=== PATIENT | male | born 1955 | race Two or more races ===

== ENCOUNTER 2024-08-27 10:39 | Inpatient (IN) | payer MEDICARE, OTHER ==
[~2024-08-27] VITALS: Ht 162.6 cm; Wt 73.1 kg
[2024-08-27 09:16] VITALS: BP 120/62
[2024-08-27 09:40] VITALS: BP 120/62
[2024-08-27 20:00] VITALS: BP 116/69; TEMP 97.4; O2SAT 98
[2024-08-27] MEDS ORDERED: REMEDY ESSENTIAL ZINC PASTE 113 GM TOP PRN (21:00)
[2024-08-27] MEDS: ATORVASTATIN 40 MG TABLET PO SCH (21:00)
[2024-08-27] MEDS: LATANOPROST OPHT DROP 2.5 ML BOTTLE EACHEYE SCH (21:00)
[2024-08-27] MEDS: BRIMONIDINE 0.2% OPHT DROP 10 ML BOTTLE EACHEYE SCH (21:00)
[2024-08-27] MEDS: DORZOLAMIDE 2% OPHT DROP 10 ML BOTTLE EACHEYE SCH (21:00)
[2024-08-28] MEDS ORDERED: MELA3TAB41 PO (02:57)
[2024-08-28] MEDS ORDERED: DEXT50VI3 IV (02:57)
[2024-08-28] MEDS ORDERED: SIME80TA15 PO ×2 (02:57)
[2024-08-28] MEDS ORDERED: HYDR-3641 GT (02:57)
[2024-08-28] MEDS ORDERED: BENA40TA67 PO (02:57)
[2024-08-28] MEDS ORDERED: BENZ-13 PO ×2 (02:57→07:59)
[2024-08-28] MEDS ORDERED: METO-295 PO (02:57)
[2024-08-28] MEDS ORDERED: LORA2VIA33 IV (02:57)
[2024-08-28] MEDS ORDERED: GLUC1VIA4 IV (02:57)
[2024-08-28] MEDS ORDERED: MICO142O TP ×2 (02:57)
[2024-08-28] MEDS ORDERED: ZINC56.713 TP ×3 (02:57→07:59)
[2024-08-28] MEDS ORDERED: IPRA0.2S48 NEB (02:57)
[2024-08-28] MEDS ORDERED: DIPH25CA83 PO (02:57)
[2024-08-28] MEDS ORDERED: DICY20TA11 PO ×2 (02:57→07:59)
[2024-08-28] MEDS ORDERED: POLY17PO4 PO (02:57)
[2024-08-28] MEDS ORDERED: AMLO10TA4 PO (02:57)
[2024-08-28] MEDS ORDERED: CALC-494 PO ×2 (02:57→09:13)
[2024-08-28] MEDS ORDERED: DEXT50DI8 IV (02:57)
[2024-08-28] MEDS ORDERED: FOLI0.8T23 PO (02:57)
[2024-08-28] MEDS ORDERED: DEXT15LI44 PO (02:57)
[2024-08-28] MEDS ORDERED: LANS30CA56 PO (03:02)
[2024-08-28 05:24] VITALS: BP 121/67; TEMP 97.6; O2SAT 97
[2024-08-28] MEDS ORDERED: MELA3CAP2 PO (07:59)
[2024-08-28] MEDS ORDERED: ATOR40TA PO (07:59)
[2024-08-28] MEDS ORDERED: MULT-366 PO (07:59)
[2024-08-28] MEDS ORDERED: MICO45CR18 VG (07:59)
[2024-08-28] MEDS ORDERED: BENA20TA78 PO (07:59)
[2024-08-28] MEDS ORDERED: HYDR10SY12 GT (07:59)
[2024-08-28] MEDS ORDERED: IPRA0.2S6 NEB (07:59)
[2024-08-28] MEDS ORDERED: CALC300T4 PO (07:59)
[2024-08-28] MEDS ORDERED: LATA7.5D EACHEYE (07:59)
[2024-08-28] MEDS ORDERED: POLY119P2 PO (07:59)
[2024-08-28] MEDS ORDERED: DORZ10DR EACHEYE (07:59)
[2024-08-28] MEDS ORDERED: LANS30CA54 PO (07:59)
[2024-08-28 08:00] VITALS: BP 119/70; TEMP 97.6; O2SAT 97
[2024-08-28] MEDS ORDERED: BRIMONIDINE 0.2% OPHT DROP 10 ML BOTTLE EACHEYE SCH ×3 (09:00)
[2024-08-28] MEDS ORDERED: DORZOLAMIDE 2% OPHT DROP 10 ML BOTTLE EACHEYE SCH (09:00)
[2024-08-28] MEDS ORDERED: BENA10TA74 PO (09:08)
[2024-08-28] MEDS ORDERED: ACET325T53 PO (09:09)
[2024-08-28] MEDS ORDERED: BRIM10DR6 EACHEYE (09:11)
[2024-08-28] MEDS ORDERED: LATA2.5D15 EACHEYE (09:26)
[2024-08-28] MEDS ORDERED: ACETAMINOPHEN 325 MG TABLET-SA PATIENTS-PAIN ONLY PO PRN (09:45)
[2024-08-28] MEDS ORDERED: MELATONIN 3 MG TABLET PO PRN (09:45)
[2024-08-28] MEDS ORDERED: hydrOXYzine HCL 10 MG TABLET GT PRN (09:45)
[2024-08-28] MEDS ORDERED: LORAZEPAM 2 MG/1 ML VIAL IV PRN (09:45)
[2024-08-28] MEDS ORDERED: ZINC OXIDE OINT 30 GM TUBE TP SCH ×2 (09:45→21:00)
[2024-08-28] MEDS ORDERED: METOCLOPRAMIDE HCL 10 MG TABLET PO PRN (09:45)
[2024-08-28] MEDS ORDERED: BENZONATATE 100 MG CAPSULE PO PRN (09:45)
[2024-08-28] MEDS ORDERED: Medication Not On Formulary EA (Calcium Carbonate 1,000 MG) PO PRN (09:45)
[2024-08-28] MEDS ORDERED: diphenhydrAMINE 25 MG CAP PO PRN (09:45)
[2024-08-28] MEDS: BENAZEPRIL HCL 10 MG TABLET PO SCH (10:12)
[2024-08-28] MEDS ORDERED: CALCIUM CARBONATE 500 MG TAB.CHEW PO PRN (10:30)
[2024-08-28] MEDS: FOLIC ACID/VITAMIN B COMP W-C TABLET PO SCH (10:57)
[2024-08-28] MEDS: AMLODIPINE 10 MG TABLET PO SCH (10:59)
[2024-08-28] MEDS: IPRATROPIUM BROMIDE 0.5 MG/2.5 ML NEBU NEB SCH (12:00)
[2024-08-28] MEDS: REMEDY ESSENTIAL ZINC PASTE 113 GM TP SCH (14:13)
[2024-08-28] MEDS: BRIMONIDINE 0.2% OPHT DROP 10 ML BOTTLE EACHEYE SCH (14:14)
[2024-08-28 15:45] VITALS: O2SAT 98
[2024-08-28 15:55] VITALS: O2SAT 99
[2024-08-28 16:00] VITALS: BP 116/64; TEMP 99.3; O2SAT 97
[2024-08-28] MEDS: ACETAMINOPHEN 325 MG TABLET PO PRN (16:24)
[2024-08-28] MEDS: DORZOLAMIDE 2% OPHT DROP 10 ML BOTTLE EACHEYE SCH (17:26)
[2024-08-28 20:25] VITALS: BP 112/64; TEMP 97.4; O2SAT 95
[2024-08-28] MEDS ORDERED: LATANOPROST OPHT DROP 2.5 ML BOTTLE EACHEYE SCH (21:00)
[2024-08-28] MEDS: ATORVASTATIN 40 MG TABLET PO SCH (21:00)
[2024-08-28] MEDS: LATANOPROST OPHT DROP 2.5 ML BOTTLE EACHEYE SCH (21:27)
[2024-08-29] VITALS (14 sets, daily range): BP systolic 123–130; BP diastolic 64–67; TEMP 97.7–98.1; O2SAT 96–99
[2024-08-29] MEDS: PANTOPRAZOLE SODIUM 40 MG TABLET.DR PO SCH (06:27)
[2024-08-29] MEDS: SIMETHICONE 80 MG TAB.CHEW PO SCH (08:31)
[2024-08-30] VITALS (12 sets, daily range): BP systolic 123–139; BP diastolic 61–77; TEMP 97.2–97.4; O2SAT 96–99
[2024-08-30] MEDS: METFORMIN HCL 500 MG TABLET PO SCH (17:21)
[2024-08-31] VITALS (8 sets, daily range): BP systolic 117–126; BP diastolic 64–69; TEMP 97.5–98; O2SAT 94–99
[2024-08-31 07:03] LABS: BASOPHILS % (AUTO) 0.3 % (0.0-2.0); EOSINOPHILS # (AUTO) 0.3 K/uL (0.0-0.7); EOSINOPHILS % (AUTO) 2.9 % (0.0-7.0); HEMATOCRIT 37.5 % (36.7-47.1); HEMOGLOBIN 12.6 g/dL (12.5-16.3); LYMPHOCYTES # (AUTO) 2.7 K/uL (0.8-4.8); LYMPHOCYTES % (AUTO) 26.1 % (20.5-51.5); MEAN CORPUSCULAR HEMOGLOBIN 30.4 uug (23.8-33.4); MEAN CORPUSCULAR HGB CONC 34 g/dL (32.5-36.3); MEAN CORPUSCULAR VOLUME 90.4 fL (73.0-96.2); MONOCYTES # (AUTO) 0.7 K/uL (0.1-1.30); MONOCYTES % (AUTO) 6.3 % (0.0-11.0); NEUTROPHILS # (AUTO) 6.6 K/uL (1.8-8.9); NEUTROPHILS % (AUTO) 64.4 % (38.5-71.5); PLATELET COUNT (AUTO) 253 K/uL (152-348); RED BLOOD CELL COUNT(AUTO) 4.15 MIL/uL (4.06-5.63); RED CELL DISTRIBUTION WIDTH 15.7 % (12.1-16.2); WHITE BLOOD COUNT (AUTO) 10.3 K/uL (3.6-10.2)
[2024-08-31 07:08] LABS: CALCIUM 9.1 mg/dL (8.5-10.1); CARBON DIOXIDE 28 mmol/L (21-32); CHLORIDE 103 mmol/L (98-107); CREATININE 0.3 mg/dL (0.6-1.3); GLUCOSE 108 mg/dL (74-106); MAGNESIUM 1.7 mg/dL (1.8-2.4); PHOSPHOROUS 3.6 mg/dL (2.5-4.9); POTASSIUM 3.8 mmol/L (3.5-5.1); SODIUM SERUM 138 mmol/L (136-145); UREA NITROGEN, BLOOD 8 mg/dL (7-18)
[2024-08-31 07:53] LABS: DIFFERENTIAL COMMENT 1
[2024-08-31] MEDS: MAGNESIUM OXIDE 400 MG TABLET PO ONE (13:44)
[2024-09-01] VITALS (8 sets, daily range): BP systolic 105–122; BP diastolic 61–64; TEMP 97.1–98.3; O2SAT 96–98
[2024-09-02] VITALS (8 sets, daily range): BP systolic 112–130; BP diastolic 62–73; TEMP 97.5–97.7; O2SAT 96–99
[2024-09-02] MEDS: ATORVASTATIN 40 MG TABLET PO SCH (20:47)
[2024-09-03 05:20] VITALS: BP 136/69; TEMP 98
[2024-09-03] MEDS: GLUCERNA SHAKE 237 ML CAN PO SCH (08:58)
[2024-09-03 18:01] VITALS: O2SAT 98
[2024-09-03 18:16] VITALS: O2SAT 100
[2024-09-03 19:56] VITALS: BP 117/59; TEMP 97.2; O2SAT 96
[2024-09-04 06:12] VITALS: BP 117/63; TEMP 98; O2SAT 96
[2024-09-04 08:21] VITALS: BP 106/56; TEMP 97.6; O2SAT 98
[2024-09-04 16:03] VITALS: BP_SYST 106; BP_SYST 125; BP_DIAS 56; BP_DIAS 68; TEMP 97.5; TEMP 97.6; O2SAT 97; O2SAT 98
[2024-09-04 20:00] VITALS: BP 148/64; TEMP 97.7; O2SAT 97
[2024-09-04] MEDS ORDERED: IPRATROPIUM BROMIDE 0.5 MG/2.5 ML NEBU NEB PRN (20:00)
[2024-09-04] MEDS: MIRALAX 17 GM POWD.PACK PO PRN (20:05)
[2024-09-05 05:00] VITALS: BP 130/70; TEMP 97.7; O2SAT 96
[2024-09-05 08:00] VITALS: BP 129/61; TEMP 97.2; O2SAT 97
[2024-09-05 16:00] VITALS: BP 115/63; TEMP 97.6; O2SAT 97
[2024-09-05 20:00] VITALS: BP 117/62; TEMP 98; O2SAT 95
[2024-09-06 05:25] VITALS: BP 127/66; TEMP 97.8; O2SAT 95
[2024-09-06 07:37] LABS: BASOPHILS % (AUTO) 0.5 % (0.0-2.0); EOSINOPHILS # (AUTO) 0.3 K/uL (0.0-0.7); EOSINOPHILS % (AUTO) 3.7 % (0.0-7.0); HEMATOCRIT 38.1 % (36.7-47.1); HEMOGLOBIN 13.1 g/dL (12.5-16.3); LYMPHOCYTES # (AUTO) 2.6 K/uL (0.8-4.8); LYMPHOCYTES % (AUTO) 33.4 % (20.5-51.5); MEAN CORPUSCULAR HEMOGLOBIN 30.7 uug (23.8-33.4); MEAN CORPUSCULAR HGB CONC 34 g/dL (32.5-36.3); MEAN CORPUSCULAR VOLUME 89.6 fL (73.0-96.2); MONOCYTES # (AUTO) 0.6 K/uL (0.1-1.30); MONOCYTES % (AUTO) 7.2 % (0.0-11.0); NEUTROPHILS # (AUTO) 4.3 K/uL (1.8-8.9); NEUTROPHILS % (AUTO) 55.2 % (38.5-71.5); PLATELET COUNT (AUTO) 295 K/uL (152-348); RED BLOOD CELL COUNT(AUTO) 4.25 MIL/uL (4.06-5.63); RED CELL DISTRIBUTION WIDTH 15.1 % (12.1-16.2); WHITE BLOOD COUNT (AUTO) 7.8 K/uL (3.6-10.2)
[2024-09-06 07:55] LABS: CALCIUM 8.5 mg/dL (8.5-10.1); CARBON DIOXIDE 27 mmol/L (21-32); CHLORIDE 106 mmol/L (98-107); CREATININE 0.3 mg/dL (0.6-1.3); GLUCOSE 96 mg/dL (74-106); MAGNESIUM 1.4 mg/dL (1.8-2.4); PHOSPHOROUS 3.7 mg/dL (2.5-4.9); POTASSIUM 3.6 mmol/L (3.5-5.1); SODIUM SERUM 140 mmol/L (136-145); UREA NITROGEN, BLOOD 6 mg/dL (7-18)
[2024-09-06 07:56] LABS: DIFFERENTIAL COMMENT 1
[2024-09-06] MEDS: MAGNESIUM OXIDE 400 MG TABLET PO ONE (10:00)
[2024-09-06 15:00] VITALS: BP 131/73; TEMP 97.9; O2SAT 98
[2024-09-06 20:00] VITALS: BP 104/55; TEMP 97.5; O2SAT 95
[2024-09-07 15:00] VITALS: BP 118/69; TEMP 97.5; O2SAT 96
[2024-09-07] MEDS: MAGNESIUM CHLORIDE 64 MG TABLET.SA PO SCH (18:49)
[2024-09-07 20:00] VITALS: BP 105/56; TEMP 97.7; O2SAT 98
[2024-09-08 05:00] VITALS: BP 126/67; TEMP 97.7; O2SAT 99
[2024-09-08 15:13] VITALS: BP 116/65; TEMP 98.2; O2SAT 96
[2024-09-08 20:00] VITALS: BP 126/68; TEMP 97.6; O2SAT 96
[2024-09-09 10:27] VITALS: TEMP 97.8
[2024-09-09 12:21] LABS: CALCIUM 9.1 mg/dL (8.5-10.1); CARBON DIOXIDE 26 mmol/L (21-32); CHLORIDE 106 mmol/L (98-107); CREATININE 0.4 mg/dL (0.6-1.3); GLUCOSE 142 mg/dL (74-106); MAGNESIUM 1.6 mg/dL (1.8-2.4); POTASSIUM 3.6 mmol/L (3.5-5.1); SODIUM SERUM 142 mmol/L (136-145); UREA NITROGEN, BLOOD 12 mg/dL (7-18)
[2024-09-09 17:31] VITALS: TEMP 98.1
[2024-09-09 20:07] VITALS: BP 126/61; TEMP 97.8; O2SAT 95
[2024-09-10 06:46] VITALS: BP 119/59; TEMP 98; O2SAT 96
[2024-09-10 08:00] VITALS: BP 124/68; TEMP 97.9; O2SAT 98
[2024-09-10] MEDS: MAGNESIUM CHLORIDE 64 MG TABLET.SA PO SCH (09:04)
[2024-09-10 16:18] VITALS: BP 112/67; TEMP 97.6; O2SAT 97
[2024-09-10 20:00] VITALS: BP 115/61; TEMP 97.6; O2SAT 94
[2024-09-11 06:00] VITALS: BP 120/74; TEMP 97.7; O2SAT 97
[2024-09-11 08:00] VITALS: BP 132/65; TEMP 97.6; O2SAT 97
[2024-09-11 17:00] VITALS: BP 118/52; TEMP 98.2; O2SAT 96
[2024-09-11 20:01] VITALS: BP 109/59; TEMP 97.9; O2SAT 96
[2024-09-12 05:40] VITALS: BP 113/64; TEMP 97.8; O2SAT 98
[2024-09-12 07:40] VITALS: BP 124/73; TEMP 98; O2SAT 98
[2024-09-12 15:58] VITALS: BP 122/71; TEMP 98; O2SAT 98
[2024-09-12 20:00] VITALS: BP 111/56; TEMP 98.1; O2SAT 97
[2024-09-13 06:00] VITALS: BP 116/68; TEMP 98.1; O2SAT 99
[2024-09-13 08:00] VITALS: BP 129/71; TEMP 97.5; O2SAT 97
[2024-09-13 16:36] VITALS: BP 111/67; TEMP 98.5; O2SAT 97
[2024-09-13 21:00] VITALS: BP 107/60; TEMP 98.3; O2SAT 96
[2024-09-14 06:45] VITALS: BP 131/71; TEMP 97.9; O2SAT 97
[2024-09-14 07:40] VITALS: BP 124/73; TEMP 97.6; O2SAT 98
[2024-09-14 08:53] LABS: BASOPHILS % (AUTO) 0.6 % (0.0-2.0); EOSINOPHILS # (AUTO) 0.3 K/uL (0.0-0.7); EOSINOPHILS % (AUTO) 3.7 % (0.0-7.0); HEMATOCRIT 41.3 % (36.7-47.1); LYMPHOCYTES # (AUTO) 2.6 K/uL (0.8-4.8); LYMPHOCYTES % (AUTO) 34.4 % (20.5-51.5); MEAN CORPUSCULAR HGB CONC 34 g/dL (32.5-36.3); MONOCYTES # (AUTO) 0.4 K/uL (0.1-1.30); MONOCYTES % (AUTO) 4.7 % (0.0-11.0); NEUTROPHILS # (AUTO) 4.2 K/uL (1.8-8.9); NEUTROPHILS % (AUTO) 56.6 % (38.5-71.5); PLATELET COUNT (AUTO) 273 K/uL (152-348); RED BLOOD CELL COUNT(AUTO) 4.53 MIL/uL (4.06-5.63); RED CELL DISTRIBUTION WIDTH 15.7 % (12.1-16.2); WHITE BLOOD COUNT (AUTO) 7.5 K/uL (3.6-10.2)
[2024-09-14 09:02] LABS: DIFFERENTIAL COMMENT 1
[2024-09-14 09:08] LABS: CALCIUM 9.2 mg/dL (8.5-10.1); CARBON DIOXIDE 28 mmol/L (21-32); CHLORIDE 105 mmol/L (98-107); CREATININE 0.4 mg/dL (0.6-1.3); GLUCOSE 143 mg/dL (74-106); MAGNESIUM 1.9 mg/dL (1.8-2.4); PHOSPHOROUS 3.9 mg/dL (2.5-4.9); POTASSIUM 3.7 mmol/L (3.5-5.1); SODIUM SERUM 142 mmol/L (136-145); UREA NITROGEN, BLOOD 8 mg/dL (7-18)
[2024-09-14 15:51] VITALS: BP 116/73; O2SAT 98
[2024-09-14 22:13] VITALS: BP 122/68; TEMP 97.7; O2SAT 97
[2024-09-15 05:57] VITALS: BP 146/76; TEMP 97.6; O2SAT 98
[2024-09-15 08:00] VITALS: BP 147/83; TEMP 97.9; O2SAT 97
[2024-09-15 16:01] VITALS: BP 100/56; TEMP 97.8; O2SAT 99
[2024-09-15 20:00] VITALS: BP 111/61; TEMP 97.8; O2SAT 97
[2024-09-16 06:00] VITALS: BP 141/78; TEMP 98.1; O2SAT 97
[2024-09-16 07:47] VITALS: BP 129/73; TEMP 97.8; O2SAT 98
[2024-09-16 16:00] VITALS: BP 108/75; TEMP 97.8; O2SAT 97
[2024-09-16 21:22] VITALS: BP 100/54; TEMP 98.4; O2SAT 98
[2024-09-17 06:39] VITALS: BP 122/72; TEMP 98.2; O2SAT 96
[2024-09-17 08:00] VITALS: BP 139/77; TEMP 97.6; O2SAT 96
[2024-09-17 17:00] VITALS: BP 119/67; TEMP 98.4; O2SAT 96
[2024-09-17 20:50] VITALS: BP 112/66; TEMP 97.5; O2SAT 97
[2024-09-18 06:00] VITALS: BP 133/77; TEMP 97.7; O2SAT 98
[2024-09-18 08:00] VITALS: BP 125/71; TEMP 97.6; O2SAT 100
[2024-09-18 16:11] VITALS: BP 117/70; TEMP 98.3; O2SAT 98
[2024-09-18 20:01] VITALS: BP 109/59; TEMP 98.3; O2SAT 98
[2024-09-19 06:28] VITALS: BP 133/75; TEMP 97.9; O2SAT 99
[2024-09-19 09:02] VITALS: BP 127/78; TEMP 97.6; O2SAT 98
[2024-09-19 15:50] VITALS: BP 104/63; TEMP 97.6; O2SAT 97
[2024-09-19 20:00] VITALS: BP 107/65; TEMP 98.2; O2SAT 97
[2024-09-20 07:14] VITALS: BP 141/75; TEMP 97.6; O2SAT 97
[2024-09-20 08:00] VITALS: BP 140/81; TEMP 97.2; O2SAT 97
[2024-09-20 15:59] VITALS: BP 121/70; TEMP 97.7; O2SAT 97
[2024-09-20 20:06] VITALS: BP 103/56; TEMP 97.8; O2SAT 96
[2024-09-21 05:20] VITALS: BP 140/80; TEMP 97.9; O2SAT 98
[2024-09-21 07:47] VITALS: TEMP 98
[2024-09-21 15:21] VITALS: TEMP 97.1
[2024-09-21 20:03] VITALS: BP 106/58; TEMP 97.6; O2SAT 98
[2024-09-22 06:00] VITALS: BP 125/70; TEMP 97.9; O2SAT 96
[2024-09-22 07:04] LABS: BASOPHILS % (AUTO) 0.7 % (0.0-2.0); EOSINOPHILS # (AUTO) 0.4 K/uL (0.0-0.7); EOSINOPHILS % (AUTO) 5.8 % (0.0-7.0); HEMATOCRIT 39.5 % (36.7-47.1); HEMOGLOBIN 13.6 g/dL (12.5-16.3); LYMPHOCYTES # (AUTO) 2.6 K/uL (0.8-4.8); LYMPHOCYTES % (AUTO) 38.3 % (20.5-51.5); MEAN CORPUSCULAR HEMOGLOBIN 30.9 uug (23.8-33.4); MEAN CORPUSCULAR HGB CONC 34 g/dL (32.5-36.3); MONOCYTES # (AUTO) 0.4 K/uL (0.1-1.30); MONOCYTES % (AUTO) 6.6 % (0.0-11.0); NEUTROPHILS # (AUTO) 3.3 K/uL (1.8-8.9); NEUTROPHILS % (AUTO) 48.6 % (38.5-71.5); PLATELET COUNT (AUTO) 242 K/uL (152-348); RED BLOOD CELL COUNT(AUTO) 4.38 MIL/uL (4.06-5.63); RED CELL DISTRIBUTION WIDTH 15.7 % (12.1-16.2); WHITE BLOOD COUNT (AUTO) 6.8 K/uL (3.6-10.2)
[2024-09-22 07:06] LABS: DIFFERENTIAL COMMENT 1
[2024-09-22 07:23] LABS: CALCIUM 8.3 mg/dL (8.5-10.1); CARBON DIOXIDE 27 mmol/L (21-32); CHLORIDE 106 mmol/L (98-107); CREATININE 0.3 mg/dL (0.6-1.3); GLUCOSE 114 mg/dL (74-106); MAGNESIUM 1.7 mg/dL (1.8-2.4); PHOSPHOROUS 4.2 mg/dL (2.5-4.9); POTASSIUM 3.5 mmol/L (3.5-5.1); SODIUM SERUM 142 mmol/L (136-145); UREA NITROGEN, BLOOD 8 mg/dL (7-18)
[2024-09-22 08:00] VITALS: BP 135/73; TEMP 97.3; O2SAT 96
[2024-09-22] MEDS: MAGNESIUM OXIDE 400 MG TABLET PO ONE (10:49)
[2024-09-22 13:00] VITALS: TEMP 97.1
[2024-09-22 15:45] VITALS: BP 135/57; TEMP 97.4; O2SAT 97
[2024-09-22 20:00] VITALS: BP 121/61; TEMP 98.3; O2SAT 97
[2024-09-23 06:00] VITALS: BP 124/72; TEMP 97.7; O2SAT 99
[2024-09-23 08:00] VITALS: BP 142/78; TEMP 97; O2SAT 97
[2024-09-23 12:35] VITALS: TEMP 97.1
[2024-09-23 16:00] VITALS: BP 128/58; TEMP 97.6; O2SAT 97
[2024-09-23] MEDS: SIMETHICONE 80 MG TAB.CHEW PO SCH (18:05)
[2024-09-23 20:57] VITALS: BP 121/63; TEMP 98.2; O2SAT 96
[2024-09-24 06:00] VITALS: BP 134/75; TEMP 98.1; O2SAT 98
[2024-09-24 07:47] VITALS: BP 151/73; TEMP 99.2; O2SAT 96
[2024-09-24 12:48] LABS: BASOPHILS # (AUTO) 0.1 K/UL (0.0-0.2); BASOPHILS % (AUTO) 0.4 % (0.0-2.0); EOSINOPHILS % (AUTO) 0.1 % (0.0-7.0); HEMATOCRIT 41.3 % (36.7-47.1); LYMPHOCYTES # (AUTO) 1.1 K/uL (0.8-4.8); LYMPHOCYTES % (AUTO) 6.3 % (20.5-51.5); MEAN CORPUSCULAR HEMOGLOBIN 30.6 uug (23.8-33.4); MEAN CORPUSCULAR HGB CONC 34 g/dL (32.5-36.3); MEAN CORPUSCULAR VOLUME 90.3 fL (73.0-96.2); MONOCYTES # (AUTO) 1.1 K/uL (0.1-1.30); MONOCYTES % (AUTO) 6.5 % (0.0-11.0); NEUTROPHILS # (AUTO) 15.1 K/uL (1.8-8.9); NEUTROPHILS % (AUTO) 86.7 % (38.5-71.5); PLATELET COUNT (AUTO) 239 K/uL (152-348); RED BLOOD CELL COUNT(AUTO) 4.58 MIL/uL (4.06-5.63); RED CELL DISTRIBUTION WIDTH 15.6 % (12.1-16.2); WHITE BLOOD COUNT (AUTO) 17.4 K/uL (3.6-10.2)
[2024-09-24 12:53] LABS: DIFFERENTIAL COMMENT 1
[2024-09-24 12:57] LABS: CALCIUM 8.8 mg/dL (8.5-10.1); CREATININE 0.7 mg/dL (0.6-1.3); POTASSIUM 3.8 mmol/L (3.5-5.1)
[2024-09-24 13:13] LABS: *BILIRUBIN,URIN NEGATIVE (NEGATIVE); *BLOOD, URINE 3+ (NEGATIVE); *CLARITY,URINE SLIGHTLY CLOUDY (CLEAR); *COLOR,URINE YELLOW (YELLOW); *KETONES,URINE 1+ (NEGATIVE); *PROTEIN,URINE 2+ (NEGATIVE); *UROBILINOGEN,URINE 0.2 E.U./dl (NORMAL); LEUKOCYTE ESTERASE ,URINE 2+ (NEGATIVE); NITRITE, URINE NEGATIVE (NEGATIVE); PH,URINE 5.5 (5.0-8.0); UGLUCOSE NEGATIVE (NEGATIVE)
[2024-09-24 13:27] LABS: BACTERIA,URINE FEW /HPF (NONE SEEN); RBC,URINE 50-80 /HPF (0-3); SQUAMOUS EPITHELIAL CELL,UR FEW /HPF (NONE SEEN)
[2024-09-24 13:28] LABS: WBC,URINE 50-80 /HPF (0-3)
[2024-09-24 16:05] VITALS: BP 140/73; TEMP 100.1; O2SAT 96
[2024-09-24] MEDS: SULFAMETH/TRIMETH 800/160 MG TABLET PO SCH (17:42)
[2024-09-24] MEDS: ACIDOPHILUS/BULGARICUS CHEW TAB PO SCH (17:43)
[2024-09-24 21:37] VITALS: BP 124/62; TEMP 102.3; O2SAT 95
[2024-09-25 06:36] VITALS: BP 120/63; TEMP 99.7; O2SAT 95
[2024-09-25 07:34] LABS: BASOPHILS # (AUTO) 0.1 K/UL (0.0-0.2); BASOPHILS % (AUTO) 0.3 % (0.0-2.0); HEMATOCRIT 40.3 % (36.7-47.1); HEMOGLOBIN 14.1 g/dL (12.5-16.3); LYMPHOCYTES # (AUTO) 2.3 K/uL (0.8-4.8); LYMPHOCYTES % (AUTO) 7.7 % (20.5-51.5); MEAN CORPUSCULAR HEMOGLOBIN 31.2 uug (23.8-33.4); MEAN CORPUSCULAR HGB CONC 35 g/dL (32.5-36.3); MEAN CORPUSCULAR VOLUME 89.5 fL (73.0-96.2); MONOCYTES # (AUTO) 1.7 K/uL (0.1-1.30); MONOCYTES % (AUTO) 5.7 % (0.0-11.0); NEUTROPHILS # (AUTO) 25.4 K/uL (1.8-8.9); NEUTROPHILS % (AUTO) 86.3 % (38.5-71.5); PLATELET COUNT (AUTO) 193 K/uL (152-348); RED CELL DISTRIBUTION WIDTH 15.4 % (12.1-16.2); WHITE BLOOD COUNT (AUTO) 29.4 K/uL (3.6-10.2)
[2024-09-25 07:39] LABS: DIFFERENTIAL COMMENT 1
[2024-09-25 07:53] LABS: CALCIUM 8.7 mg/dL (8.5-10.1); CREATININE 0.9 mg/dL (0.6-1.3); MAGNESIUM 1.6 mg/dL (1.8-2.4); PHOSPHOROUS 3.4 mg/dL (2.5-4.9); POTASSIUM 3.7 mmol/L (3.5-5.1)
[2024-09-25 08:00] VITALS: BP 128/60; TEMP 103; O2SAT 95
[2024-09-25] MEDS: MAGNESIUM OXIDE 400 MG TABLET PO ONE (13:28)
[2024-09-25 16:30] VITALS: BP 120/57; TEMP 100.1; O2SAT 96
[2024-09-25 20:00] VITALS: BP 96/50; TEMP 98.6; O2SAT 95
[2024-09-25] MEDS: IV NS 1000 ML 1,000 ML IV ONE (22:24)
[2024-09-26] MEDS: IV NS 1000 ML 1,000 ML IV ONE (00:33)
[2024-09-26 01:02] VITALS: BP 120/57; TEMP 100.2; O2SAT 93
[2024-09-26 06:00] VITALS: BP 111/52; TEMP 102.3; O2SAT 93
[2024-09-26 06:58] LABS: BASOPHILS % (AUTO) 0.2 % (0.0-2.0); HEMATOCRIT 34.1 % (36.7-47.1); HEMOGLOBIN 11.8 g/dL (12.5-16.3); LYMPHOCYTES # (AUTO) 1.5 K/uL (0.8-4.8); MEAN CORPUSCULAR HGB CONC 35 g/dL (32.5-36.3); MEAN CORPUSCULAR VOLUME 89.8 fL (73.0-96.2); MONOCYTES # (AUTO) 1.3 K/uL (0.1-1.30); MONOCYTES % (AUTO) 6.2 % (0.0-11.0); NEUTROPHILS # (AUTO) 18.1 K/uL (1.8-8.9); NEUTROPHILS % (AUTO) 86.6 % (38.5-71.5); PLATELET COUNT (AUTO) 160 K/uL (152-348); RED CELL DISTRIBUTION WIDTH 15.3 % (12.1-16.2)
[2024-09-26 07:24] LABS: DIFFERENTIAL COMMENT 1
[2024-09-26 07:31] LABS: CALCIUM 8.4 mg/dL (8.5-10.1); CREATININE 0.8 mg/dL (0.6-1.3); MAGNESIUM 1.8 mg/dL (1.8-2.4); PHOSPHOROUS 2.1 mg/dL (2.5-4.9); POTASSIUM 3.8 mmol/L (3.5-5.1)
[2024-09-26 08:00] VITALS: O2SAT 94
[2024-09-26 08:43] VITALS: BP 108/42; TEMP 99.3; O2SAT 94
[2024-09-26 14:15] VITALS: BP 97/48; TEMP 98.1; O2SAT 95
[2024-09-26] MEDS ORDERED: ATOR20TA PO (17:12)
[2024-09-26] MEDS ORDERED: METF-440 PO (17:22)
[2024-09-26] MEDS ORDERED: NUT.237L36 PO (17:25)
[2024-09-26] MEDS ORDERED: PANT40TA49 PO (17:26)
[2024-09-26] MEDS ORDERED: SULF1TAB48 PO (17:28)
[2024-09-26] MEDS ORDERED: MAGN64TA9 PO (17:52)
== END 2024-09-26 14:45 | disposition short-term general hospital (02) | DRG 94 ==
LOC: UNDOADMIN 10:39 → SRC1 10:39
PROVIDERS: ADMIT Physical Medicine & Rehabilitation Pain Medicine; ATTEND Physical Medicine & Rehabilitation Pain Medicine
DX: G61.0 Guillain-Barre syndrome (principal); J15.211 Pneumonia due to Methicillin susceptible Staphylococcus aureus; J96.01 Acute respiratory failure with hypoxia; J96.02 Acute respiratory failure with hypercapnia; J69.0 Pneumonitis due to inhalation of food and vomit; G72.81 Critical illness myopathy; K56.7 Ileus, unspecified; N39.0 Urinary tract infection, site not specified; N17.9 Acute kidney failure, unspecified; E78.5 Hyperlipidemia, unspecified; I49.5 Sick sinus syndrome; K82.8 Other specified diseases of gallbladder; R13.10 Dysphagia, unspecified; Z93.1 Gastrostomy status; I10 Essential (primary) hypertension; R73.03 Prediabetes
CPT/HCPCS: 36415; 83735; 84100; 85025; 87040; 87077; 87086; 94640; 94664; 94760; 97535-GO-CO; A4663; J3590

== ENCOUNTER 2024-09-26 15:08 | Inpatient (IN) | payer MEDICARE, OTHER ==
[~2024-09-26] VITALS: Ht 172.7 cm; Wt 79.0 kg
[~2024-09-26 15:08] MED LIST: ACET325T53 PO; AMLO10TA4 PO; ATOR40TA PO; BENA10TA74 PO; BENA20TA78 PO; BENA40TA67 PO; BENZ-13 PO; BRIM10DR6 EACHEYE; CALC-494 PO; CALC300T4 PO; DEXT15LI44 PO; DEXT50DI8 IV; DEXT50VI3 IV; DICY20TA11 PO; DIPH25CA83 PO; DORZ10DR EACHEYE; FOLI0.8T23 PO; GLUC1VIA4 IV; HYDR-3641 GT; HYDR10SY12 GT; IPRA0.2S48 NEB; IPRA0.2S6 NEB; LANS30CA54 PO; LANS30CA56 PO; LATA2.5D15 EACHEYE; LATA7.5D EACHEYE; LORA2VIA33 IV; MELA3CAP2 PO; MELA3TAB41 PO; METO-295 PO; MICO142O TP; MICO45CR18 VG; MULT-366 PO; POLY119P2 PO; POLY17PO4 PO; SIME80TA15 PO; ZINC56.713 TP
[2024-09-26 15:20] VITALS: BP 98/49; TEMP 98.4; O2SAT 96
[2024-09-26] MEDS ORDERED: ATOR20TA PO (17:12)
[2024-09-26] MEDS ORDERED: METF-440 PO (17:22)
[2024-09-26] MEDS ORDERED: NUT.237L36 PO (17:25)
[2024-09-26] MEDS ORDERED: PANT40TA49 PO (17:26)
[2024-09-26] MEDS ORDERED: SULF1TAB48 PO (17:28)
[2024-09-26] MEDS ORDERED: MAGN64TA9 PO (17:52)
[2024-09-26] MEDS: NEUTRA PHOS PACKET PO SCH (18:00)
[2024-09-26] MEDS ORDERED: ACETAMINOPHEN 325 MG TABLET-SA PATIENTS-PAIN ONLY PO PRN (18:15)
[2024-09-26] MEDS ORDERED: METOCLOPRAMIDE HCL 10 MG TABLET PO PRN (18:15)
[2024-09-26] MEDS ORDERED: ZINC OXIDE OINT 30 GM TUBE TP SCH ×2 (18:15→21:00)
[2024-09-26] MEDS ORDERED: Medication Not On Formulary EA (Calcium Carbonate 1,000 MG) PO PRN (18:15)
[2024-09-26] MEDS ORDERED: diphenhydrAMINE 25 MG CAP PO PRN (18:15)
[2024-09-26] MEDS ORDERED: IPRATROPIUM BROMIDE 0.5 MG/2.5 ML NEBU NEB PRN (18:15)
[2024-09-26] MEDS ORDERED: MIRALAX 17 GM POWD.PACK PO SCH (18:15)
[2024-09-26] MEDS ORDERED: BENZONATATE 100 MG CAPSULE PO SCH (18:15)
[2024-09-26] MEDS ORDERED: SIMETHICONE 80 MG TAB.CHEW PO SCH (18:15)
[2024-09-26] MEDS: IV NS 1000 ML 1,000 ML IV PRN (18:18)
[2024-09-26] MEDS ORDERED: ACETAMINOPHEN 325 MG TABLET PO PRN (18:30)
[2024-09-26] MEDS ORDERED: CALCIUM CARBONATE 500 MG TAB.CHEW PO PRN (19:00)
[2024-09-26] MEDS ORDERED: REMEDY ESSENTIAL ZINC PASTE 113 GM TP PRN (19:00)
[2024-09-26 19:15] VITALS: BP 104/55; TEMP 98.1; O2SAT 96
[2024-09-26] MEDS: DORZOLAMIDE 2% OPHT DROP 10 ML BOTTLE EACHEYE SCH (19:27)
[2024-09-26] MEDS: MAGNESIUM CHLORIDE 64 MG TABLET.SA PO SCH (19:27)
[2024-09-26] MEDS: BRIMONIDINE 0.2% OPHT DROP 10 ML BOTTLE EACHEYE SCH (19:27)
[2024-09-26] MEDS: METFORMIN HCL 500 MG TABLET PO SCH (19:30)
[2024-09-26] MEDS ORDERED: CEFEPIME HCL 2 GM in IV DEXTROSE 5% 100 ML IV ONE (20:00)
[2024-09-26] MEDS ORDERED: CEFEPIME HCL 1 G VIAL ONE (20:49)
[2024-09-26] MEDS: ACIDOPHILUS/BULGARICUS CHEW TAB PO SCH (20:56)
[2024-09-26] MEDS: ATORVASTATIN 20 MG TABLET PO SCH (20:56)
[2024-09-26] MEDS: REMEDY ESSENTIAL ZINC PASTE 113 GM TP SCH (20:57)
[2024-09-26] MEDS ORDERED: MELATONIN 3 MG TABLET PO PRN (21:00)
[2024-09-26] MEDS ORDERED: CEFEPIME HCL 2 GM in IV DEXTROSE 5% 100 ML IV SCH (21:00)
[2024-09-26] MEDS ORDERED: SULFAMETH/TRIMETH 800/160 MG TABLET PO SCH (21:00)
[2024-09-26] MEDS: LATANOPROST OPHT DROP 2.5 ML BOTTLE EACHEYE SCH (21:37)
[2024-09-26] MEDS: CEFEPIME HCL 2 GM in IV DEXTROSE 5% 100 ML IV ONE (21:40)
[2024-09-27 05:41] VITALS: BP 118/61; TEMP 99.2; O2SAT 97
[2024-09-27] MEDS: PANTOPRAZOLE SODIUM 40 MG TABLET.DR PO SCH (06:13)
[2024-09-27 06:41] LABS: BASOPHILS % (AUTO) 0.2 % (0.0-2.0); EOSINOPHILS % (AUTO) 0.3 % (0.0-7.0); HEMATOCRIT 32.8 % (36.7-47.1); HEMOGLOBIN 11.4 g/dL (12.5-16.3); LYMPHOCYTES # (AUTO) 1.5 K/uL (0.8-4.8); LYMPHOCYTES % (AUTO) 11.7 % (20.5-51.5); MEAN CORPUSCULAR HEMOGLOBIN 31.5 uug (23.8-33.4); MEAN CORPUSCULAR HGB CONC 35 g/dL (32.5-36.3); MEAN CORPUSCULAR VOLUME 90.3 fL (73.0-96.2); MONOCYTES # (AUTO) 0.8 K/uL (0.1-1.30); MONOCYTES % (AUTO) 6.4 % (0.0-11.0); NEUTROPHILS # (AUTO) 10.5 K/uL (1.8-8.9); NEUTROPHILS % (AUTO) 81.4 % (38.5-71.5); PLATELET COUNT (AUTO) 176 K/uL (152-348); RED BLOOD CELL COUNT(AUTO) 3.64 MIL/uL (4.06-5.63); RED CELL DISTRIBUTION WIDTH 15.3 % (12.1-16.2); WHITE BLOOD COUNT (AUTO) 12.9 K/uL (3.6-10.2)
[2024-09-27 06:50] LABS: CALCIUM 8.3 mg/dL (8.5-10.1); CARBON DIOXIDE 23 mmol/L (21-32); CHLORIDE 101 mmol/L (98-107); CREATININE 0.6 mg/dL (0.6-1.3); GLUCOSE 111 mg/dL (74-106); POTASSIUM 3.6 mmol/L (3.5-5.1); SODIUM SERUM 133 mmol/L (136-145); UREA NITROGEN, BLOOD 14 mg/dL (7-18)
[2024-09-27 06:53] LABS: DIFFERENTIAL COMMENT 1
[2024-09-27 07:55] LABS: MAGNESIUM 1.8 mg/dL (1.8-2.4); PHOSPHOROUS 2.8 mg/dL (2.5-4.9)
[2024-09-27 08:10] VITALS: BP 125/57; TEMP 98.5; O2SAT 97
[2024-09-27] MEDS: SIMETHICONE 80 MG TAB.CHEW PO SCH (08:17)
[2024-09-27] MEDS: FOLIC ACID/VITAMIN B COMP W-C TABLET PO SCH (08:17)
[2024-09-27] MEDS: BENAZEPRIL HCL 10 MG TABLET PO SCH (08:24)
[2024-09-27] MEDS ORDERED: AMLODIPINE 10 MG TABLET PO SCH (09:00)
[2024-09-27] MEDS ORDERED: GLUCERNA 1.2 1000ML LIQUID PO SCH (09:00)
[2024-09-27] MEDS: GLUCERNA SHAKE 237 ML CAN PO SCH (09:05)
[2024-09-27 11:08] VITALS: BP 124/64; TEMP 98.4; O2SAT 99
[2024-09-27] MEDS ORDERED: CEFEPIME HCL 1 G in IV DEXTROSE 5% 50 ML IV SCH (13:00)
[2024-09-27] MEDS: CEFEPIME HCL 2 GM in IV DEXTROSE 5% 100 ML IV SCH (14:11)
[2024-09-27 15:20] VITALS: BP 105/57; TEMP 98.3; O2SAT 97
[2024-09-27 19:25] VITALS: BP 122/60; TEMP 98.6; O2SAT 97
[2024-09-27 19:50] VITALS: BP 122/60; TEMP 98.6; O2SAT 97
[2024-09-28 05:27] VITALS: BP 127/53; TEMP 99.1; O2SAT 97
[2024-09-28 06:00] VITALS: BP 122/52; TEMP 99.1; O2SAT 97
[2024-09-28 11:30] VITALS: BP 111/59; TEMP 98.3; O2SAT 98
[2024-09-28 11:46] VITALS: BP 111/59; TEMP 98; O2SAT 98
[2024-09-28 15:40] VITALS: BP 128/69; TEMP 99.2; O2SAT 98
[2024-09-28 20:31] VITALS: BP 129/71; TEMP 98.4; O2SAT 97
[2024-09-29 06:05] VITALS: BP 131/77; TEMP 99; O2SAT 97
[2024-09-29 06:48] LABS: BASOPHILS % (AUTO) 0.4 % (0.0-2.0); EOSINOPHILS # (AUTO) 0.2 K/uL (0.0-0.7); EOSINOPHILS % (AUTO) 1.9 % (0.0-7.0); HEMATOCRIT 35.3 % (36.7-47.1); HEMOGLOBIN 12.2 g/dL (12.5-16.3); LYMPHOCYTES # (AUTO) 1.8 K/uL (0.8-4.8); LYMPHOCYTES % (AUTO) 22.2 % (20.5-51.5); MEAN CORPUSCULAR HEMOGLOBIN 31.2 uug (23.8-33.4); MEAN CORPUSCULAR HGB CONC 35 g/dL (32.5-36.3); MEAN CORPUSCULAR VOLUME 90.4 fL (73.0-96.2); MONOCYTES # (AUTO) 0.7 K/uL (0.1-1.30); MONOCYTES % (AUTO) 8.8 % (0.0-11.0); NEUTROPHILS # (AUTO) 5.5 K/uL (1.8-8.9); NEUTROPHILS % (AUTO) 66.7 % (38.5-71.5); PLATELET COUNT (AUTO) 250 K/uL (152-348); RED BLOOD CELL COUNT(AUTO) 3.91 MIL/uL (4.06-5.63); RED CELL DISTRIBUTION WIDTH 15.3 % (12.1-16.2); WHITE BLOOD COUNT (AUTO) 8.2 K/uL (3.6-10.2)
[2024-09-29 06:58] LABS: DIFFERENTIAL COMMENT 1
[2024-09-29 07:03] LABS: CALCIUM 8.4 mg/dL (8.5-10.1); CARBON DIOXIDE 21 mmol/L (21-32); CHLORIDE 103 mmol/L (98-107); CREATININE 0.5 mg/dL (0.6-1.3); GLUCOSE 109 mg/dL (74-106); MAGNESIUM 1.6 mg/dL (1.8-2.4); PHOSPHOROUS 3.4 mg/dL (2.5-4.9); POTASSIUM 3.4 mmol/L (3.5-5.1); SODIUM SERUM 136 mmol/L (136-145); UREA NITROGEN, BLOOD 12 mg/dL (7-18)
[2024-09-29 08:32] VITALS: BP 139/75; TEMP 97.8; O2SAT 97
[2024-09-29] MEDS: POTASSIUM CHLORIDE 20 MEQ TAB.PRT.SR PO ONE (11:11)
[2024-09-29] MEDS: MAGNESIUM OXIDE 400 MG TABLET PO ONE (11:21)
[2024-09-29 11:42] VITALS: BP 126/60; TEMP 97.6; O2SAT 99
== END 2024-09-29 12:49 | disposition home health service (06) | DRG 872 ==
LOC: MEDSURG3 15:08
PROVIDERS: ADMIT Internal Medicine Nephrology; ATTEND Internal Medicine Nephrology
DX: A41.9 Sepsis, unspecified organism (principal); N39.0 Urinary tract infection, site not specified; G61.0 Guillain-Barre syndrome; G72.81 Critical illness myopathy; I49.5 Sick sinus syndrome; T50.B95D Adverse effect of other viral vaccines, subsequent encounter; Z66 Do not resuscitate; E78.5 Hyperlipidemia, unspecified; Z87.01 Personal history of pneumonia (recurrent); Z87.19 Personal history of other diseases of the digestive system; H40.9 Unspecified glaucoma; R73.03 Prediabetes; Z79.899 Other long term (current) drug therapy; R13.10 Dysphagia, unspecified; I10 Essential (primary) hypertension; R33.9 Retention of urine, unspecified
CPT/HCPCS: 36415; 83735; 84100; 85025; 87040; G0378; J0692; J7040